=== PATIENT | male | born 1955 | race Caucasian/White ===

== ENCOUNTER → 2016-08-18 | Outpatient (CLI) | payer OTHER ==
--- NOTE | 2016-08-18 23:21 | MR ---
EXAMINATION TYPE: MR hand RT wo con DATE OF EXAM: 08/18/2016 COMPARISON: NONE HISTORY: Lump at Base of Thumb (RIGHT) Standard multiplanar, multisequence MRI departmental protocol Multiplanar, multisequence images of the right hand were acquired. FINDINGS: There is mild carpal joint effusion with fluid seen at the scaphoid trapezium joint. There is abnormal increased signal on the T2 images in the hamate. I see no fracture line. There is mild sp urring at the first carpometacarpal joint. The metacarpals appear intact. First carpometacarpal joint space is fairly normal. The extensor and flexor tendons of the hand appear intact. There is no evide nce of a soft tissue mass. There is also joint fluid seen on the dorsum of the scaphoid trapezium jeri nt. IMPRESSION: There is evidence of edema in the hamate consistent with a significant bone bruise. No fracture line seen. Carpal joint effusion and more noticeable at the scaphoid trapezium joint that is consistent with syn ovitis. No evidence of tendon tear. Mild osteoarthritis at the radiocarpal joint and also the first c arpometacarpal joint.
== END | disposition home or self-care (01) ==
LOC: RADMRIMAIN 16:45
PROVIDERS: ATTEND Family Medicine
DX: M25.431 Effusion, right wrist (principal)

== ENCOUNTER → 2017-08-18 | Outpatient (CLI) | payer OTHER ==
--- NOTE | 2017-08-18 22:52 | US ---
EXAMINATION TYPE: US carotid duplex LT DATE OF EXAM: 08/18/2017 COMPARISON: NONE CLINICAL HISTORY: 62-year-old male R09.89 Bruit. TECHNIQUE: Carotid duplex ultrasound examination. Direct Doppler criteria was utilized. FINDINGS: EXAM MEASUREMENTS: RIGHT: Peak Systolic Velocity (PSV) cm/sec ----- Right CCA: 75.3 ----- Right ICA: 111.9 ----- Right ECA: 249.7 ICA/CCA ratio: 1.5 RIGHT: End Diastole cm/sec ----- Right CCA: 21.0 ----- Right ICA: 32.3 ----- Right ECA: 34.6 LEFT: Peak Systolic Velocity (PSV) cm/sec ----- Left CCA: 76.5 ----- Left ICA: 168.8 ----- Left ECA: 137.2 ICA/CCA ratio: 2.2 LEFT: End Diastole cm/sec ----- Left CCA: 21.0 ----- Left ICA: 48.5 ----- Left ECA: 17.0 VERTEBRALS (direction of flow): Right Vertebral: Antegrade Left Vertebral: Antegrade Rhythm: Normal Documentation Billing Clerk notes: Irregular intimal wall changes are noted at bilateral carotid bifurcation with abn ormally elevated PSV in Right ECA, Left ICA and Left ECA. IMPRESSION: 1. Measurements suggest a moderate (50-69%) stenosis of the left ICA. 2. Stenoses also noted of the proximal right greater than left ECA's. Criteria for Assigning % of Stenosis / Diameter reduction (Estimation based on the indirect measurements of the internal carotid artery velocities (ICA PSV). 1. Normal (no stenosis)=ICA PSV < 125 cm/s: ratio < 2.0: ICA EDV<40 cm/s. 2. Less than 50% stenosis=ICA PSV < 125 cm/s: ratio < 2.0: ICA EDV<40 cm/s. 3. 50 to 69% stenosis=ICA PSV of 125 to 230 cm/s: ration 2.0 ? 4.0: ICA EDV 40-100 cm/s. 4. Greater than 70% stenosis to near occlusion= ICA PSV > 230 cm/s: ratio > 4.0: ICA EDV > 100 cm/s. 5. Near occlusion= ICA PSV velocities may be low or undetectable: variable ratio and ICA EDV. 6. Total occlusion=unable to detect flow.
== END | disposition home or self-care (01) ==
LOC: RADUSWWP 16:08
PROVIDERS: ATTEND Family Medicine
DX: I65.23 Occlusion and stenosis of bilateral carotid arteries (principal)
CPT/HCPCS: 93880

== ENCOUNTER → 2017-08-22 | Outpatient (CLI) | payer OTHER ==
[2017-08-22 09:18] LABS: Appearance,Urine Clear (Clear); Bilirubin,Urine Negative (Negative); Blood,Urine Negative (Negative); Color,Urine Yellow; Glucose,Urine (UA) Negative (Negative); Ketones,Urine Negative (Negative); Leukocyte Esterase,Urine Negative (Negative); Nitrite,Urine Negative (Negative); Protein,Urine Negative (Negative); Specific Gravity,Urine 1.014 (1.001-1.035); Urobilinogen,Urine <2.0 mg/dL (<2.0)
[2017-08-22 09:30] LABS: ALT 34 U/L (21-72); AST 25 U/L (17-59); Albumin 4.4 g/dL (3.5-5.0); Alkaline Phosphatase 63 U/L (38-126); Anion Gap 11 mmol/L; Blood Urea Nitrogen 23 mg/dL (9-20); Calcium 9.6 mg/dL (8.4-10.2); Carbon Dioxide 24 mmol/L (22-30); Chloride 104 mmol/L (98-107); Cholesterol 184 mg/dL (<200); Glucose 96 mg/dL (74-99); HDL Cholesterol 62 mg/dL (40-60); LDL Cholesterol,Calculated 109 mg/dL (0-99); Potassium 4.5 mmol/L (3.5-5.1); Sodium 139 mmol/L (137-145); Total Bilirubin 0.4 mg/dL (0.2-1.3); Triglycerides 67 mg/dL (<150)
[2017-08-22 09:38] LABS: HCT 42.6 % (39.0-53.0); HGB 14.8 gm/dL (13.0-17.5); MCH 32.7 pg (25.0-35.0); MCHC 34.7 g/dL (31.0-37.0); Mean Platelet Volume 7.5; Platelet Count 206 k/uL (150-450); RBC 4.53 m/uL (4.30-5.90); WBC 7.6 k/uL (3.8-10.6)
[2017-08-22 09:46] LABS: T4, Free (Free Thyroxine) 1.02 ng/dL (0.78-2.19)
[2017-08-22 10:00] LABS: Prostate Specific Antigen 0.65 ng/mL (0.00-4.00)
[2017-08-22 10:35] LABS: Lymphocytes # (M) 3.42 k/uL (1.0-4.8); Monocytes # (M) 0.76 k/uL (0-1.0); Neutrophils # (M) 3.42 k/uL (1.3-7.7); Neutrophils % (M) 45 %; Nucleated Red Blood Cells 0 /100 WBC (0-0); Total Cells Counted 100
[2017-08-22 16:44] LABS: Vitamin D 25 Hydroxy 31.8 ng/mL (30.0-100.0)
[2017-08-22 19:34] LABS: Hemoglobin A1C 4.9 % (4.0-6.0)
== END | disposition home or self-care (01) ==
LOC: LABWHC1 08:24
PROVIDERS: ATTEND Family Medicine
DX: C67.9 Malignant neoplasm of bladder, unspecified (principal); M51.36 Other intervertebral disc degeneration, lumbar region; I73.9 Peripheral vascular disease, unspecified; M19.90 Unspecified osteoarthritis, unspecified site
CPT/HCPCS: 36415; 80053; 80061; 81003; 82306; 82607; 83036; 83735; 84153; 84439; 84443; 85025

== ENCOUNTER → 2018-03-21 | Outpatient (CLI) | payer OTHER ==
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
== END | disposition home or self-care (01) ==
LOC: RADMRIMAIN 11:35
PROVIDERS: ATTEND Nurse Practitioner
DX: M51.04 Intervertebral disc disorders with myelopathy, thoracic region (principal); M47.26 Other spondylosis with radiculopathy, lumbar region; G89.29 Other chronic pain
CPT/HCPCS: 72146; 72148

== ENCOUNTER → 2018-06-30 | Outpatient (CLI) | payer OTHER ==
--- NOTE | 2018-06-30 13:36 | XR ---
EXAMINATION TYPE: XR chest 2V DATE OF EXAM: 06/30/2018 COMPARISON: Prior chest x-ray January 29, 2017. HISTORY: Bronchitis for one week. TECHNIQUE: Frontal and lateral views of the chest are obtained. FINDINGS: There is background chronic emphysematous change without suspicious focal air space opacit y, pleural effusion, or pneumothorax seen currently. The cardiac silhouette size remains within norm al limits with atherosclerotic change in aortic knob. Multilevel spurring in thoracic spine is redemo nstrated.. IMPRESSION: Chronic changes without acute pulmonary process. No significant change from prior.
== END | disposition home or self-care (01) ==
LOC: RADXRMAIN 13:02
PROVIDERS: ATTEND Internal Medicine
DX: R91.8 Other nonspecific abnormal finding of lung field (principal)
CPT/HCPCS: 71046

== ENCOUNTER → 2018-07-31 | Outpatient (CLI) | payer OTHER ==
--- NOTE | 2018-07-31 19:17 | ECHOF ---
Referral Reason:R03.0 Elevated blood-pressure reading, without... MEASUREMENTS -------- HEIGHT: 182.9 cm WEIGHT: 77.1 kg BP: 120/75 IVSd: 1.2 cm (0.6 - 1.1) LVIDd: 4.2 cm (3.9 - 5.3) LVPWd: 1.1 cm (0.6 - 1.1) IVSs: 1.5 cm LVIDs: 3.0 cm LVPWs: 1.7 cm LA Diam: 3.3 cm (2.7 - 3.8) RVIDd: 2.9 cm (< 3.3) LAESV Index (A-L): 23.39 ml/m Ao Diam: 2.8 cm (2.0 - 3.7) AV Cusp: 1.9 cm (1.5 - 2.6) EPSS: 0.4 cm MV E Marcin: 0.78 m/s MV DecT: 200 ms MV A Marcin: 0.94 m/s MV E/A Ratio: 0.82 MV EF SLOPE: 89.18 mm/s (70 - 150) MV EXCURSION: 16.70 mm (> 18.000) FINDINGS -------- Sinus rhythm. This was a technically good study. The left ventricular size is normal. There is borderline concentric left ventricular hypertrophy. Overall left ventricular systolic function is normal with, an EF between 60 - 65 %. The right ventricle is normal in size. Normal LA size by volume 22+/-6 ml/m2. The right atrium is normal in size. Interatrial and interventricular septum intact. The aortic valve is trileaflet and appears structurally normal. The mitral valve leaflets are mildly thickened. Mild mitral regurgitation is present. The tricuspid valve appears structurally normal. Trace/mild (physiologic) pulmonic regurgitation. The aortic root size is normal. Normal inferior vena cava with normal inspiratory collapse consistent with estimated right atrial pre ssure of 5 mmHg. There is no pericardial effusion. CONCLUSIONS -------- 1. Sinus rhythm. 2. This was a technically good study. 3. The left ventricular size is normal. 4. There is borderline concentric left ventricular hypertrophy. 5. Overall left ventricular systolic function is normal with, an EF between 60 - 65 %. 6. The right ventricle is normal in size. 7. Normal LA size by volume 22+/-6 ml/m2. 8. The right atrium is normal in size. 9. Interatrial and interventricular septum intact. 10. The aortic valve is trileaflet and appears structurally normal. 11. The mitral valve leaflets are mildly thickened. 12. Mild mitral regurgitation is present. 13. The tricuspid valve appears structurally normal. 14. Trace/mild (physiologic) pulmonic regurgitation. 15. The aortic root size is normal. 16. Normal inferior vena cava with normal inspiratory collapse consistent with estimated right atrial pressure of 5 mmHg. 17. There is no pericardial effusion. TELECOMMUNICATION LINES REPAIRER: Mariluz Almodovar RDCS
== END | disposition home or self-care (01) ==
LOC: RADECHMAIN 10:35
PROVIDERS: ATTEND Family Medicine
DX: I34.0 Nonrheumatic mitral (valve) insufficiency (principal); I37.1 Nonrheumatic pulmonary valve insufficiency
CPT/HCPCS: 93306

== ENCOUNTER → 2018-12-02 | Outpatient (CLI) | payer OTHER ==
--- NOTE | 2018-12-04 08:22 | CT ---
EXAMINATION TYPE: CT abdomen pelvis w con DATE OF EXAM: 12/02/2018 COMPARISON: CT urogram 05/18/2013 INDICATION: gross hematuria DLP: 537.20 mGycm, Automated exposure control for dose reduction was used. CONTRAST: 80 mL of Isovue 300. Study performed without Oral Contrast TECHNIQUE: Axial images were obtained from above the diaphragm to the pubic rami in the axial plane a t 5 mm thick sections. Reconstructed images are reviewed on the computer in the coronal plane. Imag es are presented 12-04 upon confirmation of comparison images status. FINDINGS: Limited CT sections are obtained the lung bases. The lung bases are clear. Small pneumatoceles are present. CT ABDOMEN: Liver: Normal Spleen: Normal Pancreas: Normal Adrenal glands: The adrenal glands are normal. Gallbladder: Normal Kidneys: No masses are evident. No hydronephrosis is present. No cysts are present. Delayed images were obtained through the kidneys, which remain unremarkable. No hydroureter is evident. Aorta: Vascular calcification is within the aorta. Inferior vena cava: Normal. CT PELVIS: Loops of bowel within the abdomen and pelvis are normal. The study is performed without oral cont rast limiting bowel evaluation. Note is made of a couple of diverticuli within the sigmoid colon. Bhavin e thickening through the distal rectosigmoid junction is not excluded. Additional work up of this are a is recommended. Appendix: Normal as visualized. Urinary bladder: Urinary bladder is decompressed which has limited evaluation. However, there is some increased lobular density along the posterior left urinary bladder wall is estimated to measure 1.6 x 2.5 cm. This could be compatible with patient's reported bladder cancer. Genitourinary structures: Prostate is prominent and contains calcification Osseous structures: No suspicious lytic or sclerotic lesions. Hip pins are present on the right. Some mild sacroiliac joint degenerative change may be present. A small focus of sclerosis may be along th e left iliac wing is most likely a bone island. IMPRESSIONS: 1. Irregular hyperdense area along the left ureterovesical junction. Recurrent bladder cancer should be considered 2. There may be some thickening along the rectosigmoid junction region. Sigmoidoscopy is recommended for additional evaluation. A Yellow level critical message alert has been initiated for Debbie Mills MD~[id number] via the [facility] System on 12/04/2018 8:19 AM. This message alert has been sent to Debbie sykes MD~[id number] via the preferences provided by the clinician for the receipt of Radiology Critical Fi ndings. Message ID [id number].
== END | disposition home or self-care (01) ==
LOC: RADCTMAIN 14:19
PROVIDERS: ATTEND Family Medicine
DX: N39.8 Other specified disorders of urinary system (principal)
CPT/HCPCS: 74177; Q9967

== ENCOUNTER → 2019-02-08 | Outpatient (CLI) | payer OTHER ==
--- NOTE | 2019-02-08 13:22 | XR ---
EXAMINATION TYPE: XR chest 2V DATE OF EXAM: 02/08/2019 COMPARISON: Chest x-ray June 30, 2018. HISTORY: Bladder cancer with history of COPD, presurgical study. TECHNIQUE: Frontal and lateral views of the chest are obtained. FINDINGS: Underlying emphysematous change is felt redemonstrated on lateral view. There is no focal a ir space opacity, pleural effusion, or pneumothorax seen. The cardiac silhouette size is within norm al limits. Multilevel spurring in the thoracic spine is redemonstrated. IMPRESSION: No acute cardiopulmonary process. No significant change from prior.
== END | disposition home or self-care (01) ==
LOC: RADXRMAIN 13:02
PROVIDERS: ATTEND Family Medicine
DX: Z01.818 Encounter for other preprocedural examination (principal)
CPT/HCPCS: 71046

== ENCOUNTER → 2019-12-18 | Outpatient (CLI) | payer OTHER | END | disposition home or self-care (01) | LOC: LABWHC1 11:57 | PROVIDERS: ATTEND Family Medicine | DX: E61.0 Copper deficiency (principal) | CPT/HCPCS: 36415; 82390; 82525 ==

== ENCOUNTER → 2020-03-27 | Outpatient (CLI) | payer OTHER | END | disposition home or self-care (01) | LOC: LABWHC1 13:21 | PROVIDERS: ATTEND Family Medicine | DX: I10 Essential (primary) hypertension (principal) | CPT/HCPCS: 36415; 86316 ==

== ENCOUNTER → 2020-05-05 | Outpatient (CLI) | payer OTHER, MEDICARE ==
--- NOTE | 2020-05-05 16:01 | US ---
EXAMINATION TYPE: US kidneys/renal and bladder DATE OF EXAM: 05/05/2020 COMPARISON: CT December 02, 2018 CLINICAL HISTORY: C67.8 overlapping sites of bladder. H/O bladder CA, recent tumor removal in bladder EXAM MEASUREMENTS: Right Kidney: 11.0 x 5.6 x 5.2 cm Left Kidney: 10.9 x 5.3 x 5.8 cm Right Kidney: wnl Left Kidney: wnl Bladder: Echogenic foci posterior wall= 0.4 cm Bilateral Jets seen: Yes There is no evidence for hydronephrosis at this point in time. No nephrolithiasis is seen. No david s are identified. The urinary bladder is satisfactorily distended. Technologist salguero 4 mm nonshadow ing hyperechoic focus along posterior wall of bladder, suspect focal calcification within wall. Bilat eral ureteral jets are seen. IMPRESSION: No hydronephrosis noted bilaterally.
== END ==
LOC: RADUSWWP 14:58
PROVIDERS: ATTEND Urology
DX: C67.8 Malignant neoplasm of overlapping sites of bladder (principal)
CPT/HCPCS: 76770

== ENCOUNTER → 2022-11-26 | Outpatient (CLI) | payer OTHER, MEDICARE ==
--- NOTE | 2022-11-26 15:07 | XR ---
EXAMINATION TYPE: XR chest 2V DATE OF EXAM: 11/26/2022 COMPARISON: 02/08/19 HISTORY: Shortness of breath TECHNIQUE: Frontal and lateral views of the chest are obtained. FINDINGS: Scattered senescent parenchymal changes noted. Hyperinflation compatible with COPD. No evidence for infiltrate. No evidence for atelectasis. Heart size is stable. Mediastinal structures are stable and grossly unremarkable. No evidence for hilar prominence. Degenerative changes dorsal spine. IMPRESSION: 1. No evidence for acute pulmonary disease.
== END | disposition home or self-care (01) ==
LOC: RADXRMAIN 13:32
PROVIDERS: ATTEND Internal Medicine
DX: B99.9 Unspecified infectious disease (principal); R06.02 Shortness of breath
CPT/HCPCS: 71046; 87086

== ENCOUNTER → 2023-04-18 | Outpatient (CLI) | payer OTHER, MEDICARE ==
--- NOTE | 2023-04-18 22:18 | MR ---
EXAMINATION TYPE: MR shoulder LT wo con DATE OF EXAM: 04/18/2023 COMPARISON: None HISTORY: Left shoulder pain with difficulty raising arm overhead for a few months, [facility] TECHNIQUE: Multiplanar, multisequence imaging of the left shoulder is performed without contrast. FINDINGS: Rotator Cuff: Increased signal along the distal supraspinatus tendon. Infraspinatus tendon is intact. Adjacent fluid in the subdeltoid/subacromial bursa. Subscapularis tendon is intact. Rotator cuff Mus deisy bulk is preserved. Acromioclavicular Joint: Extensive susceptibility artifact at this level from prior surgery. Distal a cromion morphology is unremarkable. Glenohumeral Joint: Small joint effusion. No significant spurring. Labrum: The labrum appears grossly intact given limitation of non-arthrogram study. Biceps Tendon: The long head of biceps is in normal location within bicipital groove. Bone marrow signal: Subchondral cyst involving the posterior osseous glenoid on axial image 13. Other: No additional significant abnormality is appreciated. IMPRESSION: 1. Evidence of prior surgery at the level of the acromioclavicular joint. 2. There is tendinosis and partial tearing of the supraspinatus tendon.
== END | disposition home or self-care (01) ==
LOC: RADMRIMAIN 21:45
PROVIDERS: ATTEND Orthopaedic Surgery
DX: M75.122 Complete rotator cuff tear or rupture of left shoulder, not specified as traumatic (principal); M67.814 Other specified disorders of tendon, left shoulder; M25.512 Pain in left shoulder

== ENCOUNTER → 2023-06-01 | Outpatient (CLI) | payer OTHER, MEDICARE ==
--- NOTE | 2023-06-02 12:28 | US ---
EXAMINATION TYPE: US carotid duplex BILAT DATE OF EXAM: 06/01/2023 COMPARISON: NONE CLINICAL INDICATION: Male, 67 years old with history of I65.23 OCCLUSION AND STENOSIS OF BILATERAL CA ROTID; stenosis TECHNIQUE: Carotid duplex ultrasound examination. Indirect Doppler criteria was utilized. FINDINGS: EXAM MEASUREMENTS: RIGHT: Peak Systolic Velocity (PSV) cm/sec ----- Right CCA: 89.5 ----- Right ICA: 227 ----- Right ECA: 437 ICA/CCA ratio: 2.5 RIGHT: End Diastole cm/sec ----- Right CCA: 21.8 ----- Right ICA: 47.1 ----- Right ECA: 10.3 LEFT: Peak Systolic Velocity (PSV) cm/sec ----- Left CCA: 85.4 ----- Left ICA: 203 ----- Left ECA: 158 ICA/CCA ratio: 2.4 LEFT: End Diastole cm/sec ----- Left CCA: 21.7 ----- Left ICA: 48.9 ----- Left ECA: 14.5 VERTEBRALS (direction of flow): Right Vertebral: Antegrade Left Vertebral: Antegrade Rhythm: Normal Bilateral atherosclerotic plaque with findings suggestive of a 50-69% stenosis bilaterally. IMPRESSION: Bilateral atherosclerotic plaque with findings suggestive of a 50-69% stenosis bilaterally. Criteria for Assigning % of Stenosis / Diameter reduction (Estimation based on the indirect measurements of the internal carotid artery velocities (ICA PSV). 1. Normal (no stenosis)=ICA PSV < 125 cm/s: ratio < 2.0: ICA EDV<40 cm/s. 2. Less than 50% stenosis=ICA PSV < 125 cm/s: ratio < 2.0: ICA EDV<40 cm/s. 3. 50 to 69% stenosis=ICA PSV of 125 to 230 cm/s: ration 2.0 ? 4.0: ICA EDV 40-100 cm/s. 4. Greater than 70% stenosis to near occlusion= ICA PSV > 230 cm/s: ratio > 4.0: ICA EDV > 100 cm/s. 5. Near occlusion= ICA PSV velocities may be low or undetectable: variable ratio and ICA EDV. 6. Total occlusion=unable to detect flow.
== END | disposition home or self-care (01) ==
LOC: RADUSWWP 13:34
PROVIDERS: ATTEND Internal Medicine Cardiovascular Disease
DX: I65.23 Occlusion and stenosis of bilateral carotid arteries (principal)
CPT/HCPCS: 93880

== ENCOUNTER → 2023-12-08 | Outpatient (CLI) | payer OTHER, MEDICARE ==
[2023-12-08 15:25] LABS: Basophils % (A) 1.1 %; Eosinophils # (A) 0.56 X 10*3/uL (0.04-0.35); Eosinophils % (A) 6.4 %; HCT 44.8 % (39.6-50.0); HGB 15.2 g/dL (13.0-17.0); Lymphocytes % (A) 28.5 %; MCH 32.4 pg (27.0-32.0); MCHC 33.9 g/dL (32.0-37.0); MCV 95.5 FL (80.0-97.0); Mean Platelet Volume 11.3 FL (9.5-12.2); Monocytes # (A) 0.63 X 10*3/uL (0.20-1.00); Monocytes % (A) 7.2 %; NRBC Per 100 WBC 0 X 10*3/uL (0.00-0.01); Neutrophils # (A) 4.94 X 10*3/uL (1.80-7.70); Neutrophils % (A) 56.5 %; Platelet Count 207 X 10*3/uL (140-440); RBC 4.69 X 10*6/uL (4.40-5.60); RDW 12.7 % (11.5-14.5); WBC 8.76 X 10*3/uL (4.50-10.00)
[2023-12-08 15:40] LABS: BUN/Creat Ratio 18.83 Ratio (12.00-20.00); Blood Urea Nitrogen 22.6 mg/dL (9.0-27.0); Calcium 9.7 mg/dL (8.7-10.3); Carbon Dioxide 25.2 mmol/L (21.6-31.8); Chloride 103 mmol/L (96-109); Glucose 107 mg/dL (70-110); Potassium 4.5 mmol/L (3.5-5.5); Sodium 139 mmol/L (135-145)
[2023-12-08 17:34] LABS: INR 0.94 sec (0.93-1.11); Prothrombin Time 10.2 sec (9.9-11.9)
== END | disposition home or self-care (01) ==
LOC: LABWHC1 10:34
PROVIDERS: ATTEND Internal Medicine Cardiovascular Disease
DX: I73.9 Peripheral vascular disease, unspecified (principal)
CPT/HCPCS: 36415; 80048; 85025; 85610

== ENCOUNTER 2024-02-28 06:59 | Day surgery (SDC) | payer OTHER, MEDICARE ==
[~2024-02-28 06:59] MED LIST: LACTATED RINGERS 1,000 ML IV SCH
[2024-02-28] MEDS: LIDOCAINE 1% (10MG/ML) FOR IV START INTRADERMA PRN (07:25)
[2024-02-28] MEDS: SODIUM CHLORIDE 0.9% 1,000 ML IV ONE (07:25)
[2024-02-28 07:34] VITALS: RESP 16; TEMP 97.1
[2024-02-28] MEDS ORDERED: PROPOFOL 10 MG/ML 20 ML VIAL IV ONE (07:52)
[2024-02-28] MEDS ORDERED: LIDOCAINE 1% INJ 10MG/ML (20 ML MDV) ONE (07:52)
--- NOTE | 2024-02-28 08:10 | P.PCN ---
Date of Procedure: 02/28/24 Procedure(s) Performed: BRIEF HISTORY: Patient is a 68-year-old pleasant male scheduled for an elective colonoscopy as a part of screening for colon cancer PROCEDURE PERFORMED: Colonoscopy with biopsy. PREOPERATIVE DIAGNOSIS: Screening for colon cancer. IV sedation per Anesthesia. PROCEDURE: After informed consent was obtained, the patient, was brought into the endoscopy unit. IV sedation was administered by Anesthesia under continuous monitoring. Digital rectal examination was normal. Initially the Olympus CF-160 flexible video colonoscope was then inserted in the rectum, gradually advanced into the cecum without any difficulty. Careful examination was performed as the scope was gradually being withdrawn. Ileocecal valve and the appendiceal orifice were visualized and appeared normal. Prep was excellent. Mucosa of the cecum had a 3 mm polyp that was removed by cold biopsy. In the transverse colon there was a 5 mm polyp removed by cold biopsy. Rest of the, ascending colon, transverse colon, descending colon, sigmoid colon, and rectum appeared normal. In the rectum there was a 3 mm and 5 mm polyp removed by cold biopsy. Retroflexion was performed in the rectum and no lesions were seen. The patient tolerated the procedure well. IMPRESSION: 3 mm cecal polyp status post cold biopsy 5 mm transverse colon polyp status post cold biopsy 3 mm and 5 mm rectal polyp status post cold biopsy RECOMMENDATIONS: Findings of this examination were discussed with the patient as well as his family.. He was advised to follow-up with the biopsy results. If the biopsy reveals adenoma he can have repeat colonoscopy in 5 years
[2024-02-28 08:37] VITALS: BP 114/59; PULSE 75
== END 2024-02-28 08:48 | disposition home or self-care (01) ==
LOC: ORWHC2ENDO 06:59
PROVIDERS: ATTEND Internal Medicine Gastroenterology
DX: Z12.11 Encounter for screening for malignant neoplasm of colon (principal); K62.1 Rectal polyp; K63.5 Polyp of colon; J44.9 Chronic obstructive pulmonary disease, unspecified; I73.9 Peripheral vascular disease, unspecified; M19.90 Unspecified osteoarthritis, unspecified site; Z79.02 Long term (current) use of antithrombotics/antiplatelets; Z79.82 Long term (current) use of aspirin
CPT/HCPCS: 88305; 45380; J2003; J2704

== ENCOUNTER → 2024-03-06 | Outpatient (CLI) | payer OTHER, MEDICARE ==
--- NOTE | 2024-03-06 11:12 | US ---
EXAMINATION TYPE: US kidneys/renal and bladder DATE OF EXAM: 03/06/2024 COMPARISON: US 2020, CT 2018 CLINICAL INDICATION: Male, 68 years old with history of C67.8 BLADDER CANCER; TECHNIQUE: Grayscale imaging of the bilateral kidneys and urinary bladder: FINDINGS: EXAM MEASUREMENTS: Right Kidney: 9.3 x 5.3 x 4.8 cm Left Kidney: 10.2 x 5.8 x 4.1 cm Right Kidney: wnl Left Kidney: fullness of renal pelvis Bladder: 1.6 x 0.9 x 2.3cm hypoechoic area along posterior wall Bilateral Jets seen: right jet seen, left jet seen Dilated left carotid collecting system compared to the right. No nephrolithiasis is seen. No masses are identified. The urinary bladder is anechoic. IMPRESSION: 1. Somewhat pedunculated mass in the base of the bladder. The expected location the prostate possibl y related to patient's history of bladder cancer. 2. Mild left hydronephrosis possibly secondary to obstruction from bladder mass. Consider direct vis ualization/CT urogram. 3. No evidence for obstructive uropathy. [facility], , 03/06/2024 11:09 AM
== END | disposition home or self-care (01) ==
LOC: RADUSWWP 09:30
PROVIDERS: ATTEND Urology
DX: C67.8 Malignant neoplasm of overlapping sites of bladder (principal); Z85.51 Personal history of malignant neoplasm of bladder
CPT/HCPCS: 76770

== ENCOUNTER → 2024-04-23 | Outpatient (CLI) | payer OTHER, MEDICARE ==
[2024-04-23 18:29] LABS: African American GFR (CKD) 68 (>60 ml/min/1.73 sqM); Anion Gap 10 mmol/L; Blood Urea Nitrogen 29 mg/dL (9-20); Calcium 10.6 mg/dL (8.4-10.2); Carbon Dioxide 27 mmol/L (22-30); Chloride 102 mmol/L (98-107); Glucose 100 mg/dL (74-99); Non-African American GFR(CKD) 58 (>60 ml/min/1.73 sqM); Potassium 4.4 mmol/L (3.5-5.1); Sodium 139 mmol/L (137-145)
--- NOTE | 2024-04-23 19:57 | CT ---
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 x 20 years TECHNIQUE: Urogram with imaging of the abdomen and pelvis. Coronal and sagittal reformats were performed. 2D and 3D reconstructions are performed to assist visualization of the urinary tract on a separate workstat ion. Contrast used:80 mL of Isovue 370 without and with IV Contrast, Oral contrast used: None. CT DLP: 1436.2 mGycm, Automated exposure control for dose reduction was used. FINDINGS: LOWER CHEST: No significant findings. Mild centrilobular emphysema changes in the lungs.1 GENITOURINARY: RIGHT KIDNEY AND URETER: No calculi. No hydronephrosis or hydroureter. No renal mass or other lesions . No urothelial lesions: no filling defect, dilation, stricture or wall thickening. LEFT KIDNEY AND URETER: No calculi. No renal mass or other lesions. Concentric wall thickening of the distal left ureter series 21 image 92 with possible underlying mass measuring up to 10 x 4 mm there is mild left hydronephrosis. URINARY BLADDER: Well distended. Has bladder wall thickening the right superior bladder dome measurin g 38 x 9 mm. REPRODUCTIVE: Unremarkable. ABDOMEN LIVER: Unremarkable GALLBLADDER AND BILE DUCTS: Unremarkable. PANCREAS: Unremarkable. SPLEEN: Unremarkable. ADRENAL GLANDS: Unremarkable. STOMACH AND BOWEL: . No evidence of bowel obstruction. Scattered colonic diverticula. The appendix is normal. PERITONEUM: No evidence of pneumoperitoneum, free fluid right common iliac artery stent graft presen t and patent. VASCULATURE: No evidence of aortic aneurysm. MUSCULOSKELETAL: No acute osseous abnormalities. Moderate disc degeneration changes are present throu ghout the thoracolumbar spine. 3 screws entering the right proximal femur in appropriate position. LYMPH NODES: No gross evidence for lymphadenopathy. SOFT TISSUE/ABDOMINAL WALL: Unremarkable IMPRESSION: 1. Mild narrowing of the distal left ureter near its insertion with mural eccentric wall thickening s uggestive of mass. There is mild left hydronephrosis findings concerning for malignancy. Further eval uation with direct visualization recommended. No evidence for lymphadenopathy 2. Eccentric right bladder wall thickening measuring 9 x 38 mm concerning for malignancy. Visualizati on recommended. Diverticulosis. 3. Right common iliac artery stent graft appears patent. 4. Colonic diverticulosis. [facility], , 04/23/2024 7:54 PM
== END | disposition home or self-care (01) ==
LOC: RADCTMAIN 17:31
PROVIDERS: ATTEND Urology
DX: C67.8 Malignant neoplasm of overlapping sites of bladder (principal); K57.30 Diverticulosis of large intestine without perforation or abscess without bleeding; N28.89 Other specified disorders of kidney and ureter; N13.30 Unspecified hydronephrosis; N32.89 Other specified disorders of bladder
CPT/HCPCS: 80048; 74178; 36415; 74400; Q9967

== ENCOUNTER → 2024-04-27 | Outpatient (CLI) | payer OTHER, MEDICARE ==
[2024-04-27 15:39] LABS: Chol/HDL Ratio 3.05 Ratio; LDL Cholesterol,Calculated 116.4 mg/dL (0.0-131.0); VLDL Calculation 13.38 mg/dL (5.00-40.00)
== END | disposition home or self-care (01) ==
LOC: LABWHC1 11:24
PROVIDERS: ATTEND Internal Medicine Cardiovascular Disease
DX: I73.9 Peripheral vascular disease, unspecified (principal)
CPT/HCPCS: 36415; 80061

== ENCOUNTER 2024-05-10 05:39 | Emergency (ER) | payer OTHER, MEDICARE ==
[2024-05-10] MEDS: MORPHINE SULFATE 4 MG/ML SYRINGE IM STA (05:59)
--- NOTE | 2024-05-10 06:24 | ED ---
Abdominal Pain HPI - General Chief Complaint: Abdominal Pain Stated Complaint: Urogenital Time Seen by Provider: 05/10/24 05:55 Source: patient, RN notes reviewed Mode of arrival: ambulatory Limitations: no limitations - History of Present Illness Initial Comments: 68-year-old male presents emergency department chief complaint of urinary retention. Patient states he been dealing with this for years. He states he had a recent surgery over a month ago for bladder cancer. Patient states that he started having retention again. Patient states he is very uncomfortable large amount of lower abdominal pressure. He states that has been dealing with catheters for years. Patient denies any fevers or chills no flank pain no other associated symptoms. - Related Data Home Medications Medication Instructions Recorded Confirmed Aspirin [Adult Low Dose Aspirin EC] 81 mg PO DAILY 02/21/24 02/21/24 Clopidogrel [Plavix] 75 mg PO QAM 02/21/24 02/21/24 Allergies Allergy/AdvReac Type Severity Reaction Status Date / Time No Known Allergies Allergy Verified 05/10/24 05:45 Review of Systems ROS Statement: Those systems with pertinent positive or pertinent negative responses have been documented in the HPI. ROS Other: All systems not noted in ROS Statement are negative. Past Medical History Additional Past Medical History / Comment(s): arthritis, bladder ca History of Any Multi-Drug Resistant Organisms: None Reported Past Surgical History: Orthopedic Surgery Additional Past Surgical History / Comment(s): bladder ca surgery, 2 hernia operations, 2 shoulder operations, cranial surgery Additional Past Anesthesia/Blood Transfusion Reaction / Comment(s): patient says he gets violent when coming off of anesthesia Past Psychological History: No Psychological Hx Reported Past Alcohol Use History: Occasional - Past Family History Father Family Medical History: Coronary Artery Disease (CAD) Additional Family Medical History / Comment(s): bladder cancer Mother Family Medical History: Coronary Artery Disease (CAD) General Exam Limitations: no limitations General appearance: alert, in no apparent distress Head exam: Present: atraumatic, normocephalic, normal inspection Respiratory exam: Present: normal lung sounds bilaterally. Absent: respiratory distress, wheezes, rales, rhonchi, stridor Cardiovascular Exam: Present: regular rate, normal rhythm, normal heart sounds. Absent: systolic murmur, diastolic murmur, rubs, gallop, clicks GI/Abdominal exam: Present: soft, tenderness, normal bowel sounds. Absent: distended, guarding, rebound, rigid Back exam: Absent: CVA tenderness (R), CVA tenderness (L) Neurological exam: Present: alert Course Vital Signs 05/10/24 05/10/24 05/10/24 05:41 06:50 07:59 Temperature 97.2 F L 98.4 F Pulse Rate 101 H 78 75 Respiratory 22 16 20 Rate Blood Pressure 178/75 132/76 137/69 O2 Sat by Pulse 97 97 95 Oximetry Medical Decision Making - Medical Decision Making Was pt. sent in by a medical professional or institution (, [facility], [facility], urgent care, hospital, or [facility]...) When possible be specific @ -No Did you speak to anyone other than the patient for history (EMS, parent, family, police, friend...)? What history was obtained from this source @ -No Did you review nursing and triage notes (agree or disagree)? Why? @ -I reviewed and agree with nursing and triage notes Were old charts reviewed (outside hosp., previous admission, EMS record, old EKG, old radiological studies, urgent care reports/EKG's, [facility] records)? Report findings @ -No old charts were reviewed Differential Diagnosis (chest pain, altered mental status, abdominal pain women, abdominal pain men, vaginal bleeding, weakness, fever, dyspnea, syncope, headache, dizziness, GI bleed, back pain, seizure, CVA, palpatations, mental health, musculoskeletal)? @ -Urinary retention, UTI, prostatitis, bladder cancer EKG interpreted by me (3pts min.). @ -None X-rays interpreted by me (1pt min.). @ -None done CT interpreted by me (1pt min.). @ -None done U/S interpreted by me (1pt. min.). @ -None done What testing was considered but not performed or refused? (CT, X-rays, U/S, labs)? Why? @ -None What meds were considered but not given or refused? Why? @ -None Did you discuss the management of the patient with other professionals (professionals i.e. [facility], [facility], lab, RT, psych nurse, social worker psychiatric, drawing in machine tender, teacher, personal banking officer, family caseworker)? Give summary @ -No Was smoking cessation discussed for >3mins.? @ -No Was critical care preformed (if so, how long)? @ -No Were there social determinants of health that impacted care today? How? (Homelessness, low income, unemployed, alcoholism, drug addiction, transportation, low edu. Level, literacy, decrease access to med. care, detention, rehab)? @ -No Was there de-escalation of care discussed even if they declined (Discuss DNR or withdrawal of care, Hospice)? DNR status @ -No What co-morbidities impacted this encounter? (DM, HTN, Smoking, COPD, CAD, Cancer, CVA, ARF, Chemo, Hep., AIDS, mental health diagnosis, sleep apnea, morbid obesity)? @ -None Was patient admitted / discharged? Hospital course, mention meds given and route, prescriptions, significant lab abnormalities, going to OR and other pertinent info. @ -Discharged patient urine retention Quiles catheter was placed by RN patient had full relief of symptoms. Patient's urine will be cultured. Patient will follow-up with his urologist yes surgery in 2 weeks for bladder cancer. Undiagnosed new problem with uncertain prognosis? @ -No Drug Therapy requiring intensive monitoring for toxicity (Heparin, Nitro, Insulin, Cardizem)? @ -No Were any procedures done? @ -No Diagnosis/symptom? @ -Urinary retention Acute, or Chronic, or Acute on Chronic? @ -Acute Uncomplicated (without systemic symptoms) or Complicated (systemic symptoms)? @ -Uncomplicated Side effects of treatment? @ -No Exacerbation, Progression, or Severe Exacerbation? @ -No Poses a threat to life or bodily function? How? (Chest pain, USA, AR, pneumonia, PE, COPD, DKA, ARF, appy, cholecystitis, CVA, Diverticulitis, Homicidal, Suicidal, threat to staff... and all critical care pts) @ -No - Lab Data Lab Results 05/10/24 Range/Units 06:27 Urine Color Light Red Urine Appearance Cloudy (Clear) Urine pH 5.5 (5.0-8.0) Ur Specific Anderson 1.016 (1.001-1.035) Urine Protein Trace H (Negative) Urine Glucose (UA) Negative (Negative) Urine Ketones 1+ H (Negative) Urine Blood Large H (Negative) Urine Nitrite Negative (Negative) Urine Bilirubin Negative (Negative) Urine Urobilinogen <2.0 (<2.0) mg/dL Ur Leukocyte Esterase Small H (Negative) Urine RBC >182 H (0-5) /hpf Urine WBC 59 H (0-5) /hpf Urine Yeast (Budding) Moderate H (None) /hpf Disposition Clinical Impression: Urinary retention Disposition: HOME SELF-CARE Condition: Stable Instructions (If sedation given, give patient instructions): Urinary Retention in Men (ED) Additional Instructions: Please return to the Emergency Department if symptoms worsen or any other concerns. Is patient prescribed a controlled substance at d/c from ED?: No Referrals: Moises Allison MD [Primary Care Provider] - 1-2 days Time of Disposition: 07:34
[2024-05-10] MEDS: LIDOCAINE 2% URO-JET JELLY 5 ML KIT URETHRAL ONE (06:29)
[2024-05-10 07:22] LABS: Appearance,Urine Cloudy (Clear); Bilirubin,Urine Negative (Negative); Blood,Urine Large (Negative); Budding Yeast,Urine Moderate /hpf; Color,Urine Light Red; Glucose,Urine (UA) Negative (Negative); Ketones,Urine 1+ (Negative); Leukocyte Esterase,Urine Small (Negative); Nitrite,Urine Negative (Negative); PH, Urine 5.5 (5.0-8.0); Protein,Urine Trace (Negative); RBC,Urine >182 /hpf (0-5); Specific Gravity,Urine 1.016 (1.001-1.035); Urobilinogen,Urine <2.0 mg/dL (<2.0); WBC,Urine 59 /hpf (0-5)
[2024-05-10 08:02] VITALS: BP 137/69; PULSE 75; RESP 20; TEMP 98.4
== END 2024-05-10 08:12 | disposition home or self-care (01) ==
LOC: EC 05:39
DX: R33.9 Retention of urine, unspecified (principal); R10.30 Lower abdominal pain, unspecified
CPT/HCPCS: 51798; 81001; 87086; 99284; 51702; 96372; J2270

== ENCOUNTER → 2024-07-06 | Outpatient (CLI) | payer OTHER, MEDICARE ==
--- NOTE | 2024-07-06 14:58 | US ---
EXAMINATION TYPE: US carotid duplex BILAT DATE OF EXAM: 07/06/2024 COMPARISON: 06/01/2023 CLINICAL INDICATION: Male, 68 years old with history of I65.23 CAROT STENOSIS, LILLIE; Smoker Additional History: .... TECHNIQUE: Grayscale, color Doppler and spectral Doppler evaluation of the bilateral carotid systems and vertebral arteries. Indirect Doppler criteria was utilized. FINDINGS: EXAM MEASUREMENTS: RIGHT: Peak Systolic Velocity (PSV) cm/sec ----- Right CCA: 82 ----- Right ICA: 224 ----- Right ECA: 415 ICA/CCA ratio: 2.7 RIGHT: End Diastole cm/sec ----- Right CCA: 21 ----- Right ICA: 69 ----- Right ECA: 32 LEFT: Peak Systolic Velocity (PSV) cm/sec ----- Left CCA: 92 ----- Left ICA: 164 ----- Left ECA: 155 ICA/CCA ratio: 1.8 LEFT: End Diastole cm/sec ----- Left CCA: 28 ----- Left ICA: 56 ----- Left ECA: 15 VERTEBRALS (direction of flow): Right Vertebral: Antegrade Left Vertebral: Antegrade Rhythm: Normal DYE LINE OPERATOR NOTES: Intimal thickening and plaque seen bilaterally, elevated velocities seen in the ri ght ICA and ECA and left ICA and ECA Color Doppler imaging shows patency with blood flow throughout the carotid artery. Spectral waveforms are within normal limits. IMPRESSION: Right: 50-69% stenosis of the carotid bifurcation. Left: Less than 50% stenosis of the carotid bifurcation. Criteria for Assigning % of Stenosis / Diameter reduction (Estimation based on the indirect measurements of the internal carotid artery velocities (ICA PSV). 1. Normal (no stenosis)=ICA PSV < 180 cm/s: ratio < 2.0: ICA EDV<40 cm/s. 2. Less than 50% stenosis=ICA PSV < 180 cm/s: ratio < 2.0: ICA EDV<40 cm/s. 3. 50 to 69% stenosis=ICA PSV of 180 to 230 cm/s: ration 2.0 ? 4.0: ICA EDV 40-100 cm/s. PSV 125-180 cm/sec and ICA/CCA PSV Ratio ? 2.0 is also consistent with 50-69% stenosis 4. Greater than 70% stenosis to near occlusion= ICA PSV > 230 cm/s: ratio > 4.0: ICA EDV > 100 cm/s. 5. Near occlusion= ICA PSV velocities may be low or undetectable: variable ratio and ICA EDV. 6. Total occlusion=unable to detect flow. [facility], , 07/06/2024 2:56 PM
== END | disposition home or self-care (01) ==
LOC: RADUSWWP 14:18
PROVIDERS: ATTEND Internal Medicine
DX: I65.23 Occlusion and stenosis of bilateral carotid arteries (principal)
CPT/HCPCS: 93880

== ENCOUNTER → 2024-07-12 | Outpatient (CLI) | payer OTHER, MEDICARE ==
--- NOTE | 2024-07-12 18:59 | CA ---
Transthoracic Echo Report Name: Cleveland Devlin Age: 68 Gender: M : 1955 Exam Date: 07/12/2024 15:38 Exam Location: [facility] Ht (in): 72 Wt (lb): 165 Ordering Physician: Moises Alliosn MD Attending/Referring Phys: Fire Chief Edna Jean-Baptiste RDCS Procedure CPT: Indications: I25.10 CORONARY ARTERY Cardiac Hx: Technical Quality: Good Contrast 1: Total Dose (mL): Contrast 2: Total Dose (mL): MEASUREMENTS (Male / Female) Normal Values 2D ECHO LV Diastolic Diameter PLAX 4.1 cm 4.2 - 5.9 / 3.9 - 5.3 cm LV Systolic Diameter PLAX 2.7 cm IVS Diastolic Thickness 1.0 cm 0.6 - 1.0 / 0.6 - 0.9 cm LVPW Diastolic Thickness 1.0 cm 0.6 - 1.0 / 0.6 - 0.9 cm LV Relative Wall Thickness 0.5 LVOT Diameter 1.7 cm Aortic Root Diameter 3.2 cm LA Systolic Diameter LX 3.2 cm 3.0 - 4.0 / 2.7 - 3.8 cm LA Volume 50.3 cm??? 18 - 58 / 22 - 52 cm??? LA Volume Index 25.8 cm???/m??? 16 - 28 cm???/m??? DOPPLER MV Area PHT 2.6 cm??? Mitral E Point Velocity 71.3 cm/s Mitral A Point Velocity 87.4 cm/s Mitral E to A Ratio 0.8 MV Deceleration Time 295.7 ms TR Peak Velocity 164.2 cm/s TR Peak Gradient 10.8 mmHg FINDINGS Left Ventricle Left ventricular ejection fraction is estimated at 60 %. Normal Left ventricular size, wall thickness, systolic function with no obvious regional wall motion abnormalities. Right Ventricle Normal right ventricular size and function. Right ventricular systolic pressure within normal limits. Right Atrium Normal right atrial size. Left Atrium Normal left atrial size. Mitral Valve Structurally normal mitral valve. No mitral stenosis. Trace mitral regurgitation. Aortic Valve Trileaflet aortic valve. No aortic valve stenosis or regurgitation. Tricuspid Valve Structurally normal tricuspid valve. No tricuspid stenosis. Trace tricuspid regurgitation. Pulmonic Valve Pulmonic valve not well visualized. No pulmonic stenosis. No pulmonic regurgitation. Pericardium Minimal pericardial effusion (normal variant). Aorta Normal size aortic root and proximal ascending aorta. CONCLUSIONS Reason Coronary artery disease Preserved LV size and function without wall motion abnormalities Previewed by: Dr. Braeden Dow MD (Electronically Signed) Final Date: 12 Jul 2024 18:58
== END | disposition home or self-care (01) ==
LOC: RADECHMAIN 15:31
PROVIDERS: ATTEND Internal Medicine
DX: I25.10 Atherosclerotic heart disease of native coronary artery without angina pectoris (principal); I07.1 Rheumatic tricuspid insufficiency
CPT/HCPCS: 93306

== ENCOUNTER → 2024-08-17 | Outpatient (CLI) | payer OTHER, MEDICARE ==
[2024-08-17 14:49] LABS: African American GFR (CKD) 63 (>60 ml/min/1.73 sqM); Blood Urea Nitrogen 36 mg/dL (9-20); Non-African American GFR(CKD) 54 (>60 ml/min/1.73 sqM)
--- NOTE | 2024-08-18 07:13 | CT ---
EXAMINATION TYPE: CT angio neck DATE OF EXAM: 08/17/2024 3:46 PM COMPARISON: None. CLINICAL INDICATION: Male, 69 years old with history of I65.23 OCCLUSION AND STENOSIS OF BILATERAL CA ROTI, hx of stents, no stroke hx TECHNIQUE: CTA scan is performed with axial images are obtained, coronal and sagittal reformatted elodia ges are reviewed. MIP images created on a separate workstation and submitted for review. 3-D reconstr ucted images are created on an independent workstation and reviewed. Source images are reviewed. AMY CET criteria was used in interpretation of this exam? Contrast used:65 ml mL of Isovue 370 with IV Contrast, (none if empty) Oral contrast used: (none if empty) CT DLP: 293.50 mGycm, Automated exposure control for dose reduction was used. FINDINGS: Carotid/Vascular Structures: There is a 3 vessel arch. Common carotid arteries bifurcate into internal and external carotid arteries. Calcification is prese nt. Bilaterally. On the left this is contributing to 56% narrowing. On the right this is contributing to 56% narrowing. Vertebral arteries are codominant. Internal carotid arteries and vertebral arteries are patent to the skull base. Other: Some emphysematous changes are evident. Scattered small mediastinal lymph nodes are present IMPRESSION: 1. Moderate narrowing bilateral carotid bifurcations with approximately 56% narrowing bilaterally. [facility], , 08/18/2024 7:10 AM
== END | disposition home or self-care (01) ==
LOC: RADCTMAIN 14:01
PROVIDERS: ATTEND Internal Medicine
DX: I65.23 Occlusion and stenosis of bilateral carotid arteries (principal)
CPT/HCPCS: 82565; 84520; 70498; 36415; Q9967